=== PATIENT | female | born 1955 | race Hispanic/Latino ===

== ENCOUNTER → 2023-10-19 | Outpatient (CLI) | payer OTHER, MEDICARE | END | disposition home or self-care (01) | LOC: RAH 10:39 | PROVIDERS: ATTEND Nurse Practitioner Family | DX: M47.814 Spondylosis without myelopathy or radiculopathy, thoracic region (principal); M47.812 Spondylosis without myelopathy or radiculopathy, cervical region; M54.2 Cervicalgia; M25.70 Osteophyte, unspecified joint; M48.02 Spinal stenosis, cervical region | CPT/HCPCS: 72040; 72070 ==

== ENCOUNTER → 2025-02-12 | Outpatient (CLI) | payer OTHER, MEDICAID ==
[~2025-02-12] MED LIST: ALEN70SO4 PO; DOXY100T21 PO; LISI2.5T13 PO; METF-446 PO; NAPR-1505 PO; OMEP40CA21 PO; PRAV40TA3 PO; SITA100T12 PO
--- NOTE | 2025-02-12 09:43 | HMCIMG ---
Exam Type: US RENAL SONOGRAM Clinical Information: hematuria Comparison: None Findings: Examination shows normal renal size and echogenicity bilaterally. Preserved cortical thickness and corticomedullary junction region is seen. No hydronephrosis or calculi are seen. No renal masses are seen. There is no evidence of perinephric fluid on either side. No evidence of significant ureteral dilatation is seen. Right kidney shows a simple cyst, 15 mm. The urinary bladder is normal. No bladder masses, stones, or wall thickening is seen. IMPRESSION: Normal renal anatomy bilaterally.
--- NOTE | 2025-02-12 09:44 | HMCIMG ---
Exam Type: US PELVIC NON-OB COMP Clinical Information: pelvic and perineal pain Comparison: None Findings: Uterus is surgically absent. The ovaries are obscured. No adnexal pathology identified. IMPRESSION: No acute findings.
== END | disposition home or self-care (01) ==
LOC: RAH 07:38
PROVIDERS: ATTEND Internal Medicine
DX: N28.1 Cyst of kidney, acquired (principal); Z98.890 Other specified postprocedural states; N30.01 Acute cystitis with hematuria; R10.2 Pelvic and perineal pain
CPT/HCPCS: 76770; 76856